=== PATIENT | female | born 1970 | race Caucasian/White ===

== ENCOUNTER 2025-04-01 15:10 | Emergency (ER) | payer MEDICAID, SELFPAY ==
[2025-04-01 15:18] VITALS: BP 97/78; PULSE 115; RESP 20; TEMP 36.6; O2SAT 98
--- NOTE | 2025-04-01 15:28 | ECG_ITS ---
Test Date: 2025-04-01 15:37:22 Measurements Intervals [place] Rate: 107 P: -7 NM: 157 QRS: 28 QRSD: 64 T: 33 QT: 304 QTc: 407 Interpretive Statements SINUS TACHYCARDIA BASELINE ARTIFACT- I, II, III, AVR, AVL, AVF ABNORMAL ECG No previous ECG available for comparison Electronically Signed On 04-01-2025 16:48:13 CDT by Klaus Lopez D.O.
--- NOTE | 2025-04-01 15:37 | ED.SOB ---
HPI - SOB/Dyspnea General Chief Complaint: Shortness of Breath/Dyspnea Stated Complaint: hard time breathing up / down stairs Time Seen by Provider: 04/01/25 15:15 Source: patient and RN notes reviewed Mode of arrival: ambulatory Limitations: no limitations History of Present Illness HPI Narrative: 55-year-old female presents Express Care with family member complaining of chest pain and shortness of breath over the last 1-2 weeks. Patient says symptoms occur with exertion, she primarily notices when she goes up and down stairs. Says the pain gets worse. Patient reports the pain as a sharp sensation the middle of her chest along with feeling short of breath when she is moving around. Patient reports a mild cough. Patient is any nausea, vomiting, fevers, eczema chills, jaw pain, left arm pain, leg swelling, orthopnea, vaginal bleeding, abnormal bleeding, or any other symptoms. Patient says she has a history of hypertension, type 2 diabetes, high cholesterol, higher and anemia. Patient denies any smoking use. Patient is not in good to help with symptoms. Denies any cardiac history. Related Data Home Medications ?Medication ?Instructions ?Recorded ?Confirmed ?Last Taken ?Type atorvastatin 10 mg tablet mg 04/01/25 Unknown History gabapentin 300 mg capsule mg 04/01/25 Unknown History metformin 500 mg tablet,extended mg PO 04/01/25 Unknown History release 24 hr Allergies Allergy/AdvReac Type Severity Reaction Status Date / Time No Known Allergies Allergy Verified 04/01/25 15:28 Review of Systems Review of Systems: CONSTITUTIONAL: Denies fever, chills, body will aches, or sweats. EYES: Denies visual changes, redness, or discharge. ENT: Denies rhinorrhea, congestion, sore throat, or otalgia. CARDIOVASCULAR: Positive chest pain with exertion. Denies chest pain at rest, dizziness, lightheadedness, orthopnea, palpitations, or edema. RESPIRATORY: Positive for cough and dyspnea with exertion. Negative for dyspnea at rest, wheezing, difficulty breathing. GASTROINTESTINAL: Denies abdominal pain, nausea, vomiting, or diarrhea. GENITOURINARY: Denies dysuria or hematuria. SKIN: Denies rash or itching. MUSCULOSKELETAL: Denies back pain, joint pain, or myalgia. NEUROLOGIC: Denies headache, numbness, or weakness. PSYCHIATRIC: Denies anxiety or depression. All other systems reviewed are negative, except as documented in HPI. PMFSH Comments At the time of my signature, I reviewed and agree with the nursing past medical, surgical, social, and family history. There is no relevant family history pertinent to the patient complaint. Exam Narrative: GENERAL: This is a well-nourished, well-developed adult, in no apparent distress. They are non ill-appearing, nontoxic appearing. HEAD: normocephalic, atraumatic. EYES: Sclera clear/white. Conjunctiva normal. Vision is grossly intact. Extraocular movements intact EARS: External ears normal, Hearing grossly intact. NOSE: External nose normal THROAT: Mucous membranes moist, NECK: Neck supple, CARDIOVASCULAR: Tachycardic rate and rhythm without murmurs, gallops, or rubs. Normal S1 and S2. Peripheral pulses palpable. RESPIRATORY: Clear to auscultation. Breath sounds equal bilaterally. No wheezes, rales, or rhonchi. Normal respiratory exam. SKIN: warm, Dry, intact with no suspicious lesions or rash, good texture and turgor. NEURO: awake, alert, and oriented to person, place and time. There were no obvious focal neurologic abnormalities. EXTREMITIES: No joint tenderness, effusion, or edema noted. BACK: Nontender without deformity. No CVA tenderness. Course Course Emergency Course: Portions of this record may have been created with voice recognition software Level of Care: Express Care Visit Vital Signs Vital signs: Vital Signs Temperature 97.8 F 04/01/25 15:18 Pulse Rate 115 H 04/01/25 15:18 Respiratory Rate 20 04/01/25 15:18 Blood Pressure 97/78 L 04/01/25 15:18 Pulse Oximetry 98 04/01/25 15:18 Oxygen Delivery Room Air 04/01/25 15:18 Temperature 97.8 F 04/01/25 15:18 Pulse Rate 115 H 04/01/25 15:18 Respiratory Rate 20 04/01/25 15:18 Blood Pressure 97/78 L 04/01/25 15:18 Pulse Oximetry 98 04/01/25 15:18 Oxygen Delivery Room Air 04/01/25 15:18 Reviewed Transfer Transfered to: [facility] Transportation: Other (Private vehicle) Transfer rationale: Patient requires higher level care, patient having chest pain with exertion and shortness of breath with exertion, potential lab work further evaluation management, possible imaging. Accepting physician: Dr. Shell MDM - SOB/Dyspnea MDM Narrative Medical decision making narrative: EKG is sinus tachycardia with no ischemic findings, nonspecific T-wave changes. Patient's symptoms are concerning patient has concerning health history is well. Given patient's symptoms, it is recommend the patient seek a higher level care and proceed immediately to the emergency department. Patient is agreeable to go to [facility]. Call over to [facility] and spoke to to srinivas Fuchs who is aware this patient and Dr. Shell accepted this patient for transfer. Patient advised to remain NPO proceed immediately to the ER. Offered patient ALS ambulance and she declined, stating patient's family member who is with her today will take her to the hospital via private vehicle. Patient vital signs hemodynamically stable for transfer. Patient nontoxic appearing in no apparent distress. Differential Diagnosis Differential diagnosis: Likely congestive heart failure, pulmonary embolism and other (Acute coronary syndrome, unstable angina, unstable angina, pneumonia, anemia) ECG Data EKG #1: Attestation: I personally reviewed and interpreted this ECG as follows: ECG completion date: 04/01/25 ECG completion time: 15:37 Prior ECG tracings: not available for review EKG Interpretation: tachycardia, sinus rhythm, no ectopy, no ST changes, normal QT and NL axis Critical Care Time Critical Care Time Critical Care Time: No Discharge Plan Discharge Clinical Impression: Chest pain on exertion, Dyspnea on exertion Patient Disposition: Acute Care Hospital Condition: Stable Patient Language: Indonesian Prescriptions: No Action atorvastatin 10 mg tablet gabapentin 300 mg capsule metformin 500 mg tablet extended release 24 hr PO Follow-up/Referrals: Pauly,Heidi Null APRN [Primary Care Provider, Unknown] Time of Disposition: 15:48
== END 2025-04-01 16:19 | disposition short-term general hospital (02) ==
PROVIDERS: PCP Nurse Practitioner Family
DX: R07.9 Chest pain, unspecified (principal); R06.00 Dyspnea, unspecified; Z79.899 Other long term (current) drug therapy; Z79.84 Long term (current) use of oral hypoglycemic drugs
CPT/HCPCS: 93005; 99203; G0463